=== PATIENT | male | born 1965 | race Caucasian/White ===

== ENCOUNTER → 2016-07-02 | Outpatient (CLI) | payer OTHER | LOC: RAD 12:49 | DX: M79.671 Pain in right foot (principal) | CPT/HCPCS: 73650 ==

== ENCOUNTER → 2020-10-31 | Outpatient (CLI) | payer OTHER | LOC: EXRD 13:50 | DX: R94.6 Abnormal results of thyroid function studies (principal); E04.2 Nontoxic multinodular goiter | CPT/HCPCS: 76536 ==

== ENCOUNTER 2020-11-17 06:57 | Emergency (ER) | payer OTHER ==
[2020-11-17 08:27] LABS: HEMOGLOBIN 16.6 gm/dl (14.0-17.5); RED BLOOD COUNT 5.35 M/UL (4.20-5.50); WHITE BLOOD COUNT 6.9 K/UL (4.5-11.0)
[2020-11-17 08:35] LABS: BUN/CREATININE RATIO 14 (0-10)
[2020-11-17] MEDS ORDERED: MECLIZINE HCL25 MG PO (09:05)
== END 2020-11-17 10:07 | disposition home or self-care (01) ==
LOC: ER1 06:57
PROVIDERS: Physician Assistant
DX: R51.9 Headache, unspecified (principal); R06.02 Shortness of breath; R05.9 Cough, unspecified; R50.9 Fever, unspecified; E11.9 Type 2 diabetes mellitus without complications; Z20.822 Contact with and (suspected) exposure to COVID-19; Z79.899 Other long term (current) drug therapy
CPT/HCPCS: 71045; 80053; 82550; 82553; 83874; 84484; 85025; 85379; 86140; 99285; U0002

== ENCOUNTER 2021-01-10 21:24 | Emergency (ER) | payer OTHER ==
[~2021-01-10 21:24] MED LIST: MECLIZINE HCL25 MG PO
[2021-01-10 22:44] LABS: HEMOGLOBIN 15.4 gm/dl (14.0-17.5); RED BLOOD COUNT 5.01 M/UL (4.20-5.50); WHITE BLOOD COUNT 8.5 K/UL (4.5-11.0)
[2021-01-10 23:05] LABS: BUN/CREATININE RATIO 18 (0-10)
[2021-01-11] MEDS ORDERED: LODINE CAP 300300 MG PO (02:46)
== END 2021-01-11 03:01 | disposition home or self-care (01) ==
LOC: ER1 21:24
PROVIDERS: Physician Assistant
DX: S86.912A Strain of unspecified muscle(s) and tendon(s) at lower leg level, left leg, initial encounter (principal); E87.6 Hypokalemia; R20.2 Paresthesia of skin; X50.9XXA Other and unspecified overexertion or strenuous movements or postures, initial encounter
CPT/HCPCS: 71045; 73564; 80053; 82550; 82553; 83874; 84484; 85025; 85652; 86140; 93005; 99284